=== PATIENT | female | born 1975 | race Hispanic/Latino ===

== ENCOUNTER 2022-04-28 23:52 | Emergency (ER) | payer OTHER ==
[~2022-04-28] VITALS: Ht 152.4 cm; Wt 111.6 kg
[2022-04-29] MEDS ORDERED: KETOROLAC TROMETHAMINE 60 MG/2 ML VIAL IM ONE (00:15)
[2022-04-29] MEDS ORDERED: ACETAMIN-CODE12.5 ML PO (01:25)
[2022-04-29 01:56] VITALS: BP 150/60
== END 2022-04-29 01:56 | disposition home or self-care (01) ==
LOC: FSED 04-29 00:10
DX: S92.001A Unspecified fracture of right calcaneus, initial encounter for closed fracture (principal); X50.1XXA Overexertion from prolonged static or awkward postures, initial encounter; Y93.01 Activity, walking, marching and hiking; Y92.89 Other specified places as the place of occurrence of the external cause
CPT/HCPCS: 29515; 73610; 73630; 96372; 99283; J1885